=== PATIENT | female | born 1950 | race Caucasian/White ===

== ENCOUNTER 2020-04-30 19:10 | Emergency (ER) | payer MEDICARE, OTHER ==
[~2020-04-30 19:10] MED LIST: ASPIRIN81 MG PO; COZAAR 25MG TAB25 MG PO; LEVOTHYROXINE125 MCG PO; OMEPRAZOLE20 M1 PO
[2020-04-30 19:57] LABS: HEMOGLOBIN 13.3 gm/dl (12.3-15.3); RED BLOOD COUNT 4.82 M/UL (4.00-5.10); WHITE BLOOD COUNT 6.7 K/UL (4.5-11.0)
[2020-04-30] MEDS ORDERED: NORVASC5 MG PO (20:38)
== END 2020-04-30 20:40 | disposition home or self-care (01) ==
LOC: ER1 19:10
PROVIDERS: Emergency Medicine
DX: I10 Essential (primary) hypertension (principal)
CPT/HCPCS: 36415; 80053; 81001; 82550; 82553; 83874; 84439; 84443; 84484; 85025; 93005; 99283

== ENCOUNTER → 2020-05-03 | Outpatient (CLI) | payer MEDICARE, OTHER ==
[~2020-05-03] MED LIST changes: +AZOR 5-20 MG T1 EACH PO; +BENTYL 10MG CAP10 MG PO; +COLACE 100MG C100 MG PO; +HYDROCODON-ACE1 EAC6 PO; +IBUPROFEN800 MG PO; +NORVASC5 MG PO; +XOPENEX HFA15 GM INH; +ZOFRAN ODT 4 MG4 MG PO
== END ==
LOC: OPSV2 09:00
DX: Z01.818 Encounter for other preprocedural examination (principal); N95.0 Postmenopausal bleeding
CPT/HCPCS: 71046

== ENCOUNTER 2020-05-18 06:28 | Day surgery (SDC) | payer MEDICARE, OTHER ==
[~2020-05-18] VITALS: Ht 162.6 cm; Wt 99.8 kg
[~2020-05-18 06:28] MED LIST changes: -AZOR 5-20 MG T1 EACH PO; -BENTYL 10MG CAP10 MG PO; -COLACE 100MG C100 MG PO; -HYDROCODON-ACE1 EAC6 PO; -IBUPROFEN800 MG PO; -XOPENEX HFA15 GM INH; -ZOFRAN ODT 4 MG4 MG PO
[2020-05-18] MEDS ORDERED: XOPENEX HFA15 GM INH (07:06)
[2020-05-18] MEDS ORDERED: AZOR 5-20 MG T1 EACH PO (07:07)
[2020-05-18] MEDS ORDERED: COLACE 100MG C100 MG PO (10:01)
[2020-05-18] MEDS ORDERED: HYDROCODON-ACE1 EAC6 PO (10:01)
[2020-05-19 04:36] LABS: HEMOGLOBIN 12.1 gm/dl (12.3-15.3)
== END 2020-05-19 14:08 | disposition home or self-care (01) ==
LOC: OR 06:28 → MED SURG 4 14:40 → OR 05-19 14:08
PROVIDERS: Obstetrics & Gynecology
PROC: 0UT74ZZ Resection of Bilateral Fallopian Tubes, Percutaneous Endoscopic Approach (ICD-10-PCS; 2020-05-18)
PROC: 0UT94ZZ Resection of Uterus, Percutaneous Endoscopic Approach (ICD-10-PCS; principal; 2020-05-18 07:30)
PROC: 0UT24ZZ Resection of Bilateral Ovaries, Percutaneous Endoscopic Approach (ICD-10-PCS; 2020-05-18 07:30)
DX: N95.0 Postmenopausal bleeding (principal); N88.2 Stricture and stenosis of cervix uteri; N85.01 Benign endometrial hyperplasia; D25.1 Intramural leiomyoma of uterus; I12.9 Hypertensive chronic kidney disease with stage 1 through stage 4 chronic kidney disease, or unspecified chronic kidney disease; E11.22 Type 2 diabetes mellitus with diabetic chronic kidney disease; N18.30 Chronic kidney disease, stage 3 unspecified; E89.0 Postprocedural hypothyroidism; J45.909 Unspecified asthma, uncomplicated; K76.0 Fatty (change of) liver, not elsewhere classified; K44.9 Diaphragmatic hernia without obstruction or gangrene; E66.01 Morbid (severe) obesity due to excess calories; Z68.38 Body mass index [BMI] 38.0-38.9, adult; Z87.891 Personal history of nicotine dependence; Z79.82 Long term (current) use of aspirin; Z79.899 Other long term (current) drug therapy; Z20.822 Contact with and (suspected) exposure to COVID-19
CPT/HCPCS: 85014; 85018; J0690; J2001; J2405; J2704; J2710; J2795; J3010; J7120

== ENCOUNTER 2020-08-05 07:45 | Emergency (ER) | payer MEDICARE, OTHER ==
[~2020-08-05 07:45] MED LIST changes: +AZOR 5-20 MG T1 EACH PO; +COLACE 100MG C100 MG PO; +HYDROCODON-ACE1 EAC6 PO; +XOPENEX HFA15 GM INH
[2020-08-05 08:29] LABS: HEMOGLOBIN 13.3 gm/dl (12.3-15.3); RED BLOOD COUNT 4.8 M/UL (4.00-5.10); WHITE BLOOD COUNT 4.7 K/UL (4.5-11.0)
[2020-08-05 08:55] LABS: BUN/CREATININE RATIO 14 (0-10)
[2020-08-05] MEDS ORDERED: IBUPROFEN800 MG PO (11:52)
[2020-08-05] MEDS ORDERED: COLACE 100MG C100 MG PO (11:52)
[2020-08-05] MEDS ORDERED: ZOFRAN ODT 4 MG4 MG PO (11:52)
[2020-08-05] MEDS ORDERED: BENTYL 10MG CAP10 MG PO (11:52)
== END 2020-08-05 11:58 | disposition home or self-care (01) ==
LOC: ER1 07:45
PROVIDERS: Emergency Medicine
DX: R10.31 Right lower quadrant pain (principal); I10 Essential (primary) hypertension; E03.9 Hypothyroidism, unspecified; Z90.710 Acquired absence of both cervix and uterus; Z20.822 Contact with and (suspected) exposure to COVID-19
CPT/HCPCS: 71045; 80053; 81001; 82550; 82553; 83605; 84484; 85025; 85610; 85730; 93005; 99284; Q9967; U0002

== ENCOUNTER → 2021-01-12 | Outpatient (CLI) | payer MEDICARE, OTHER ==
[~2021-01-12] MED LIST changes: +BENTYL 10MG CAP10 MG PO; +IBUPROFEN800 MG PO; +ZOFRAN ODT 4 MG4 MG PO
== END ==
LOC: EROP 12:51
DX: U07.1 COVID-19 (principal); Z23 Encounter for immunization
CPT/HCPCS: 96365

== ENCOUNTER → 2021-09-07 | Outpatient (CLI) | payer MEDICARE | LOC: CT 08-24 08:00 | DX: N39.0 Urinary tract infection, site not specified (principal); J98.4 Other disorders of lung; L98.9 Disorder of the skin and subcutaneous tissue, unspecified; E66.9 Obesity, unspecified; M85.80 Other specified disorders of bone density and structure, unspecified site; I10 Essential (primary) hypertension; J45.909 Unspecified asthma, uncomplicated; R91.8 Other nonspecific abnormal finding of lung field; K76.0 Fatty (change of) liver, not elsewhere classified; N28.1 Cyst of kidney, acquired; K57.90 Diverticulosis of intestine, part unspecified, without perforation or abscess without bleeding; Z98.84 Bariatric surgery status; Z78.0 Asymptomatic menopausal state | CPT/HCPCS: 71270; Q9967 ==